=== PATIENT | female | born 1990 | race Caucasian/White ===

== ENCOUNTER 2017-07-29 17:10 | Emergency (ER) | payer BC ==
[~2017-07-29] VITALS: Ht 165.1 cm; Wt 86.2 kg
[~2017-07-29 17:10] MED LIST: ALBU90OI INH; AMOX500 PO; ATEN25 PO; CIPR500 PO; CODACE30 PO; CODBUTACEC; CODBUTACEC PO; FOLI400 PO; HYDACE10B PO; HYDACE5 PO; HYDR1TAB94 PO; IBUP400 PO; IBUP600 PO; Inderal40 MG PO; LORTAB 10 MG-3473 ML PO; NAPR500 PO; NITR100CA PO; ONDA4ODT MM; ORTHOCYCLINE; OXYACE5T PO; OXYASA5T PO; PENVK500 PO; PHENA200 PO; PROC10 PO; PROM25 PO; Percocet 10-321 EACH PO; Percocet 5-3251 EACH PO; QUDEXY XR150 MG PO; SULTRIDS PO; TAMS.4ER PO; TOPI50 PO; VENL150ER PO; VENL75ER PO; ZOLP10 PO
== END 2017-07-29 23:29 | disposition home or self-care (01) ==
LOC: ER 17:10
DX: Z30.432 Encounter for removal of intrauterine contraceptive device (principal); Z88.8 Allergy status to other drugs, medicaments and biological substances; Z87.891 Personal history of nicotine dependence
CPT/HCPCS: 74018; 76830; 76856; 99284

== ENCOUNTER 2018-01-09 14:33 | Emergency (ER) | payer OTHER ==
[~2018-01-09] VITALS: Ht 165.1 cm; Wt 90.7 kg
== END 2018-01-09 16:42 | disposition home or self-care (01) ==
LOC: ER 14:33
DX: G43.909 Migraine, unspecified, not intractable, without status migrainosus (principal); J45.909 Unspecified asthma, uncomplicated; F32.9 Major depressive disorder, single episode, unspecified; Z87.891 Personal history of nicotine dependence
CPT/HCPCS: 96374; 96375; 99283-25; J1100; J1200; J1885; J2765; J7030

== ENCOUNTER 2018-08-06 13:04 | Emergency (ER) | payer SELFPAY ==
[~2018-08-06] VITALS: Ht 167.6 cm; Wt 102.5 kg
[2018-08-06] MEDS ORDERED: METPRE4DP PO (13:29)
[2018-08-06] MEDS ORDERED: Naprosyn500 MG PO (13:29)
[2018-08-06] MEDS ORDERED: HYDR1TAB94 PO (13:29)
== END 2018-08-06 13:38 | disposition home or self-care (01) ==
LOC: ER 13:04
DX: M54.42 Lumbago with sciatica, left side (principal); F32.9 Major depressive disorder, single episode, unspecified; Z87.891 Personal history of nicotine dependence
CPT/HCPCS: 99283

== ENCOUNTER 2018-08-08 20:34 | Emergency (ER) | payer MEDICAID ==
[~2018-08-08] VITALS: Ht 167.6 cm; Wt 99.8 kg
[~2018-08-08 20:34] MED LIST changes: +METPRE4DP PO; +Naprosyn500 MG PO
[2018-08-08 21:30] LABS: BASOPHILS ABSOLUTE AUTO 0.04 K/mm3 (0.00-0.23); BASOPHILS PERCENT AUTO 0 % (0-2); EOSINOPHILS ABSOLUTE AUTO 0.02 K/mm3 (0.00-0.68); EOSINOPHILS PERCENT AUTO 0 % (0-6); Hematocrit 40.9 % (33.0-51.0); Hemoglobin 13.5 g/dL (11.5-16.0); IMMATURE GRAN ABSOLUTE AUTO 0.25 K/mm3 (0.00-0.10); IMMATURE GRAN PERCENT AUTO 1 % (0-1); LYMPHOCYTES ABSOLUTE AUTO 2.48 K/mm3 (0.84-5.20); LYMPHOCYTES PERCENT AUTO 12 % (21-46); MONOCYTES ABSOLUTE AUTO 0.77 K/mm3 (0.16-1.47); MONOCYTES PERCENT AUTO 4 % (4-13); Mean Corpuscular HGB 30.8 pg (26.0-34.0); Mean Corpuscular Volume 93 fL (80-100); Mean Platelet Volume 11.9 fL (9.1-12.4); NEUTROPHILS ABSOLUTE AUTO 16.47 K/mm3 (1.96-9.15); NEUTROPHILS PERCENT AUTO 82 % (41-73); Platelet Count 319 K/mm3 (150-400); RDW Coefficient Variation 11.9 % (11.7-14.2); RDW Standard Deviation 41.1 fL (35.1-46.3); Red Blood Cell Count 4.38 M/mm3 (3.80-5.20); White Blood Cell Count 20.03 K/mm3 (4.00-11.30)
[2018-08-08 21:48] LABS: Alanine Aminotransfer (ALT/SGP 25 U/L (12-78); Albumin, Blood 4.1 g/dL (3.4-5.0); Alk Phos 35 U/L (50-136); Anion Gap 9 mmol/L (6-16); Aspartate Aminotrans (AST/SGOT 13 U/L (12-37); Bilirubin, Total 0.2 mg/dL (0.1-1.0); Blood Urea Nitrogen 12 mg/dL (8-24); Bun/Creatinine Ratio 21.5 (12.0-20.0); CO2, Blood 25 mmol/L (21-32); Calcium, Blood 8.9 mg/dL (8.5-10.1); Chloride, Blood 106 mmol/L (98-108); Creatinine, Blood 0.56 mg/dL (0.40-1.00); Globulin, Blood 4.2 g/dL (2.2-4.0); Glomerular Filtration Rate >60 (60-); Glucose, Blood 140 mg/dL (70-99); Potassium, Blood 3.5 mmol/L (3.5-5.5); Sodium, Blood 140 mmol/L (136-145); Total Protein, Blood 8.3 g/dL (6.4-8.2)
[2018-08-08 22:04] LABS: Source, Urine Clean Catch
[2018-08-08 22:07] LABS: Bilirubin, Urine Neg (Neg); Blood, Urine 1+ (Neg); Glucose Qualitative, Urine Neg (Neg); Ketones, Urine Neg (Neg); Leukocyte Esterase, Urine Neg (Neg); Nitrite, Urine Neg (Neg); Protein, Urine Neg (Neg); Specific Gravity, Urine 1.015 (1.003-1.022); Urobilinogen, Urine NORM (Normal); pH, Urine 6.5 (5.0-8.0)
[2018-08-08 22:12] LABS: Appearance, Urine Clear (Clear); Color, Urine Yellow (P-Yellow)
[2018-08-08 22:13] LABS: Bacteria Mod /hpf; Red Blood Cells, Urine 0-2 /hpf (0-2); Squamous Epithelial Cells Not Seen /hpf (Few); White Blood Cells, Urine 0-2 /hpf (0-5)
[2018-08-09] MEDS ORDERED: Cipro250 MG PO (00:38)
== END 2018-08-09 01:22 | disposition home or self-care (01) ==
LOC: ER 20:34
PROVIDERS: Emergency Medicine
DX: N12 Tubulo-interstitial nephritis, not specified as acute or chronic (principal); J45.909 Unspecified asthma, uncomplicated; F32.9 Major depressive disorder, single episode, unspecified; Z87.891 Personal history of nicotine dependence
CPT/HCPCS: 36415; 80053; 81001; 85025; 87086; 96374; 96375; 99283-25; J0780; J1200; J1885; J2060

== ENCOUNTER 2018-09-27 20:31 | Emergency (ER) | payer SELFPAY ==
[~2018-09-27] VITALS: Ht 167.6 cm; Wt 104.3 kg
[~2018-09-27 20:31] MED LIST changes: +BENZ100A PO; +Cipro250 MG PO
== END 2018-09-27 22:05 | disposition home or self-care (01) ==
LOC: ER 20:31
DX: S01.551A Open bite of lip, initial encounter (principal); W54.0XXA Bitten by dog, initial encounter; Z88.8 Allergy status to other drugs, medicaments and biological substances; F17.200 Nicotine dependence, unspecified, uncomplicated
CPT/HCPCS: 99283

== ENCOUNTER 2019-04-24 17:50 | Emergency (ER) | payer OTHER ==
[~2019-04-24] VITALS: Ht 167.6 cm; Wt 99.8 kg
[2019-04-24 18:51] LABS: BASOPHILS ABSOLUTE AUTO 0.05 K/mm3 (0.00-0.23); BASOPHILS PERCENT AUTO 0 % (0-2); EOSINOPHILS ABSOLUTE AUTO 0.19 K/mm3 (0.00-0.68); EOSINOPHILS PERCENT AUTO 2 % (0-6); Hemoglobin 13.7 g/dL (11.5-16.0); IMMATURE GRAN ABSOLUTE AUTO 0.03 K/mm3 (0.00-0.10); IMMATURE GRAN PERCENT AUTO 0 % (0-1); LYMPHOCYTES ABSOLUTE AUTO 4.08 K/mm3 (0.84-5.20); LYMPHOCYTES PERCENT AUTO 32 % (21-46); MONOCYTES ABSOLUTE AUTO 0.63 K/mm3 (0.16-1.47); MONOCYTES PERCENT AUTO 5 % (4-13); Mean Corpuscular HGB 30.4 pg (26.0-34.0); Mean Corpuscular HGB Conc 33.4 g/dL (31.5-36.5); Mean Corpuscular Volume 91 fL (80-100); Mean Platelet Volume 11.5 fL (9.1-12.4); NEUTROPHILS ABSOLUTE AUTO 7.92 K/mm3 (1.96-9.15); NEUTROPHILS PERCENT AUTO 61 % (41-73); Platelet Count 304 K/mm3 (150-400); RDW Coefficient Variation 12.2 % (11.7-14.2); RDW Standard Deviation 40.5 fL (35.1-46.3)
[2019-04-24 19:02] LABS: Alanine Aminotransfer (ALT/SGP 27 U/L (12-78); Albumin, Blood 3.9 g/dL (3.4-5.0); Alk Phos 37 U/L (50-136); Anion Gap 7 mmol/L (6-16); Aspartate Aminotrans (AST/SGOT 15 U/L (12-37); Bilirubin, Total 0.3 mg/dL (0.1-1.0); Blood Urea Nitrogen 11 mg/dL (8-24); CO2, Blood 25 mmol/L (21-32); Calcium, Blood 8.9 mg/dL (8.5-10.1); Chloride, Blood 106 mmol/L (98-108); Creatinine, Blood 0.61 mg/dL (0.40-1.00); Globulin, Blood 4.1 g/dL (2.2-4.0); Glomerular Filtration Rate >60 (60-); Glucose, Blood 115 mg/dL (70-99); Potassium, Blood 3.7 mmol/L (3.5-5.5); Sodium, Blood 138 mmol/L (136-145)
[2019-04-24 19:36] LABS: Source, Urine Clean Catch
[2019-04-24 19:42] LABS: Bilirubin, Urine Neg (Neg); Blood, Urine Neg (Neg); Glucose Qualitative, Urine Neg (Neg); Ketones, Urine Neg (Neg); Leukocyte Esterase, Urine Neg (Neg); Nitrite, Urine Neg (Neg); Protein, Urine Neg (Neg); Specific Gravity, Urine 1.025 (1.003-1.022); Urobilinogen, Urine 1+ (Normal)
[2019-04-24 19:50] LABS: Appearance, Urine Clear (Clear); Color, Urine Yellow (P-Yellow)
== END 2019-04-24 21:00 | disposition home or self-care (01) ==
LOC: ER 17:50
PROVIDERS: Physician Assistant
DX: S39.012A Strain of muscle, fascia and tendon of lower back, initial encounter (principal); S39.011A Strain of muscle, fascia and tendon of abdomen, initial encounter; J45.909 Unspecified asthma, uncomplicated; F32.9 Major depressive disorder, single episode, unspecified; Z88.8 Allergy status to other drugs, medicaments and biological substances; Z87.442 Personal history of urinary calculi; X58.XXXA Exposure to other specified factors, initial encounter
CPT/HCPCS: 36415; 74176; 80053; 81003; 81025; 85025; 96361; 96374; 96375; 99284-25; A9270; J1170; J1885; J2405; J7030

== ENCOUNTER 2019-08-07 02:05 | Emergency (ER) | payer OTHER ==
[~2019-08-07] VITALS: Ht 167.6 cm; Wt 104.3 kg
[~2019-08-07 02:05] MED LIST changes: +Acetaminophen-1 EAC1 PO; +BUTALB-ACETAMI1 EACH PO; +Esgic Tablet1 EACH PO; +IBUP800 PO; +TOPI100 PO
[2019-08-07 02:42] LABS: BASOPHILS ABSOLUTE AUTO 0.06 K/mm3 (0.00-0.23); BASOPHILS PERCENT AUTO 0 % (0-2); EOSINOPHILS ABSOLUTE AUTO 0.21 K/mm3 (0.00-0.68); EOSINOPHILS PERCENT AUTO 1 % (0-6); Hemoglobin 14.4 g/dL (11.5-16.0); IMMATURE GRAN ABSOLUTE AUTO 0.03 K/mm3 (0.00-0.10); IMMATURE GRAN PERCENT AUTO 0 % (0-1); LYMPHOCYTES ABSOLUTE AUTO 4.83 K/mm3 (0.84-5.20); LYMPHOCYTES PERCENT AUTO 29 % (21-46); MONOCYTES ABSOLUTE AUTO 1.09 K/mm3 (0.16-1.47); MONOCYTES PERCENT AUTO 7 % (4-13); Mean Corpuscular HGB 30.7 pg (26.0-34.0); Mean Corpuscular HGB Conc 33.5 g/dL (31.5-36.5); Mean Corpuscular Volume 92 fL (80-100); Mean Platelet Volume 12.2 fL (9.1-12.4); NEUTROPHILS ABSOLUTE AUTO 10.39 K/mm3 (1.96-9.15); NEUTROPHILS PERCENT AUTO 62 % (41-73); Platelet Count 288 K/mm3 (150-400); RDW Coefficient Variation 12.4 % (11.7-14.2); Red Blood Cell Count 4.69 M/mm3 (3.80-5.20); White Blood Cell Count 16.61 K/mm3 (4.00-11.30)
[2019-08-07 02:53] LABS: Source, Urine Clean Catch
[2019-08-07 03:01] LABS: Alanine Aminotransfer (ALT/SGP 23 U/L (12-78); Alk Phos 41 U/L (50-136); Anion Gap 7 mmol/L (6-16); Aspartate Aminotrans (AST/SGOT 12 U/L (12-37); Bilirubin, Total 0.3 mg/dL (0.1-1.0); Blood Urea Nitrogen 11 mg/dL (8-24); Bun/Creatinine Ratio 11.3 (12.0-20.0); CO2, Blood 24 mmol/L (21-32); Calcium, Blood 9.1 mg/dL (8.5-10.1); Chloride, Blood 110 mmol/L (98-108); Creatinine, Blood 0.97 mg/dL (0.40-1.00); Glomerular Filtration Rate >60 (60-); Glucose, Blood 114 mg/dL (70-99); Potassium, Blood 3.8 mmol/L (3.5-5.5); Sodium, Blood 141 mmol/L (136-145)
[2019-08-07 03:08] LABS: Amorphous Light (0-Heavy); Appearance, Urine Hazy (Clear); Bacteria Mod /hpf; Bilirubin, Urine Neg (Neg); Blood, Urine 2+ (Neg); Color, Urine Yellow (P-Yellow); Glucose Qualitative, Urine Neg (Neg); Ketones, Urine Neg (Neg); Leukocyte Esterase, Urine Neg (Neg); Mucus Light (0-Heavy); Nitrite, Urine Neg (Neg); Protein, Urine 1+ (Neg); Squamous Epithelial Cells Few /hpf (Few); Urobilinogen, Urine NORM (Normal); White Blood Cells, Urine 0-2 /hpf (0-5)
[2019-08-07] MEDS ORDERED: Bactrim Ds Tab1 EACH PO (06:24)
[2019-08-07] MEDS ORDERED: Percocet 5-3251 EACH PO (06:24)
[2019-08-07] MEDS ORDERED: Flomax0.4 MG PO (06:24)
== END 2019-08-07 06:51 | disposition home or self-care (01) ==
LOC: ER 02:05
PROVIDERS: Emergency Medicine
DX: N13.2 Hydronephrosis with renal and ureteral calculous obstruction (principal); Z88.8 Allergy status to other drugs, medicaments and biological substances; Z79.899 Other long term (current) drug therapy; F32.9 Major depressive disorder, single episode, unspecified; J45.909 Unspecified asthma, uncomplicated
CPT/HCPCS: 36415; 74176; 80053; 81001; 81025; 83690; 85025; 96365; 96375; 96376; 99284-25; J0696; J1170; J1885

== ENCOUNTER 2019-10-07 11:01 | Emergency (ER) | payer OTHER ==
[~2019-10-07] VITALS: Ht 167.6 cm; Wt 108.0 kg
[~2019-10-07 11:01] MED LIST changes: +Bactrim Ds Tab1 EACH PO; +Flomax0.4 MG PO
== END 2019-10-07 12:37 | disposition home or self-care (01) ==
LOC: ER 11:01
DX: O00.90 Unspecified ectopic pregnancy without intrauterine pregnancy (principal); Z88.8 Allergy status to other drugs, medicaments and biological substances; Z79.899 Other long term (current) drug therapy; Z87.891 Personal history of nicotine dependence
CPT/HCPCS: 96372; 99283-25; J8610; J9260

== ENCOUNTER 2020-04-07 07:26 | Day surgery (SDC) | payer OTHER ==
[~2020-04-07] VITALS: Ht 167.6 cm; Wt 109.7 kg
[~2020-04-07 07:26] MED LIST changes: +ACET325 PO; +ACETAMINOPHEN500 MG PO; +BUTALB-ACETAMI1 EAC7 PO; +Promethazine HC25 M1 PO
== END 2020-04-07 10:53 | disposition home or self-care (01) ==
LOC: ORSCSDS 07:26
PROVIDERS: Obstetrics & Gynecology
PROC: 0D5W4ZZ Destruction of Peritoneum, Percutaneous Endoscopic Approach (ICD-10-PCS; principal; 2020-04-07 08:45)
PROC: 0DNW4ZZ Release Peritoneum, Percutaneous Endoscopic Approach (ICD-10-PCS; principal; 2020-04-07 08:45)
DX: N92.0 Excessive and frequent menstruation with regular cycle (principal); N80.3 Endometriosis of pelvic peritoneum; R10.2 Pelvic and perineal pain; N94.6 Dysmenorrhea, unspecified; N94.10 Unspecified dyspareunia; F41.8 Other specified anxiety disorders; E66.01 Morbid (severe) obesity due to excess calories; Z68.39 Body mass index [BMI] 39.0-39.9, adult; Z87.891 Personal history of nicotine dependence
CPT/HCPCS: A9270; J0171; J0690; J1100; J2405; J2704; J2765; J3010; J7120

== ENCOUNTER 2021-03-13 06:32 | Inpatient (IN) | payer OTHER ==
[~2021-03-13] VITALS: Ht 167.6 cm; Wt 120.5 kg
[2021-03-13 07:33] LABS: BASOPHILS ABSOLUTE AUTO 0.04 K/mm3 (0.00-0.23); BASOPHILS PERCENT AUTO 0 % (0-2); EOSINOPHILS ABSOLUTE AUTO 0.16 K/mm3 (0.00-0.68); EOSINOPHILS PERCENT AUTO 2 % (0-6); Hematocrit 40.4 % (33.0-51.0); Hemoglobin 13.5 g/dL (11.5-16.0); IMMATURE GRAN ABSOLUTE AUTO 0.06 K/mm3 (0.00-0.10); IMMATURE GRAN PERCENT AUTO 1 % (0-1); LYMPHOCYTES ABSOLUTE AUTO 3.14 K/mm3 (0.84-5.20); LYMPHOCYTES PERCENT AUTO 30 % (21-46); MONOCYTES ABSOLUTE AUTO 0.67 K/mm3 (0.16-1.47); MONOCYTES PERCENT AUTO 6 % (4-13); Mean Corpuscular HGB 28.7 pg (26.0-34.0); Mean Corpuscular HGB Conc 33.4 g/dL (31.5-36.5); Mean Corpuscular Volume 86 fL (80-100); NEUTROPHILS ABSOLUTE AUTO 6.41 K/mm3 (1.96-9.15); NEUTROPHILS PERCENT AUTO 61 % (41-73); Platelet Count 176 K/mm3 (150-400); RDW Coefficient Variation 13.6 % (11.7-14.2); RDW Standard Deviation 41.9 fL (35.1-46.3); Red Blood Cell Count 4.71 M/mm3 (3.80-5.20); White Blood Cell Count 10.48 K/mm3 (4.00-11.30)
[2021-03-13 07:36] LABS: Mean Platelet Volume 13.9 fL (9.1-12.4)
[2021-03-13] MEDS ORDERED: PRENATAL TABLE1 EAC2 PO (07:53)
--- NOTE | 2021-03-13 10:12 | NUR ---
03/13/21 Moraima2 Rosemarie Aranda CORD SEGMENT GIVEN TO RT. CORD BLOOD GIVEN TO BABY NURSE.
[2021-03-13 10:18] LABS: PCO2 Cord - Arterial 82.7 mmHg (40-50); PO2 Cord - Arterial < 13 mmHg (16-20); pH Cord - Arterial 7.02 (7.28-7.35)
[2021-03-13 10:19] LABS: PCO2 Cord - Venous 74.3 mmHg (40-50); pH Umbilical Cord - Venous 7.09 (7.26-7.35)
[2021-03-13 10:20] LABS: PO2 Cord - Venous < 13 mmHg (28-32)
[2021-03-14 05:46] LABS: BASOPHILS ABSOLUTE AUTO 0.04 K/mm3 (0.00-0.23); BASOPHILS PERCENT AUTO 0 % (0-2); EOSINOPHILS ABSOLUTE AUTO 0.11 K/mm3 (0.00-0.68); EOSINOPHILS PERCENT AUTO 1 % (0-6); Hematocrit 34.4 % (33.0-51.0); Hemoglobin 11.6 g/dL (11.5-16.0); IMMATURE GRAN ABSOLUTE AUTO 0.06 K/mm3 (0.00-0.10); IMMATURE GRAN PERCENT AUTO 1 % (0-1); LYMPHOCYTES ABSOLUTE AUTO 3.99 K/mm3 (0.84-5.20); LYMPHOCYTES PERCENT AUTO 34 % (21-46); MONOCYTES ABSOLUTE AUTO 0.72 K/mm3 (0.16-1.47); MONOCYTES PERCENT AUTO 6 % (4-13); Mean Corpuscular HGB 28.9 pg (26.0-34.0); Mean Corpuscular HGB Conc 33.7 g/dL (31.5-36.5); Mean Corpuscular Volume 86 fL (80-100); NEUTROPHILS ABSOLUTE AUTO 6.95 K/mm3 (1.96-9.15); NEUTROPHILS PERCENT AUTO 59 % (41-73); Platelet Count 158 K/mm3 (150-400); RDW Coefficient Variation 13.6 % (11.7-14.2); Red Blood Cell Count 4.01 M/mm3 (3.80-5.20); White Blood Cell Count 11.87 K/mm3 (4.00-11.30)
[2021-03-14 05:50] LABS: Mean Platelet Volume 13.2 fL (9.1-12.4)
[2021-03-15] MEDS ORDERED: Percocet 5-3251 EACH PO (09:35)
[2021-03-15] MEDS ORDERED: IBU800 M1 PO (09:35)
[2021-03-15] MEDS ORDERED: DOCU100 PO (09:36)
--- NOTE | 2021-03-15 10:42 | NUR ---
Printed d/c instructions and teaching reveiewed with pt. Denies additional questions/concerns at this time. Verbalizes understanding of follow up appointments. No acute changes t/o shift. ID bands matched w/nb. Pt d/c'd home ambulatory to care of [facility].
== END 2021-03-15 10:30 | disposition home or self-care (01) | DRG 788 ==
LOC: BC 06:32
PROVIDERS: ADMIT Obstetrics & Gynecology
PROC: 10D00Z1 Extraction of Products of Conception, Low, Open Approach (ICD-10-PCS; principal; 2021-03-13 08:30)
DX: O32.1XX0 Maternal care for breech presentation, not applicable or unspecified (principal); Z37.0 Single live birth; Z3A.39 39 weeks gestation of pregnancy; Z67.40 Type O blood, Rh positive; O13.4 Gestational [pregnancy-induced] hypertension without significant proteinuria, complicating childbirth; O34.83 Maternal care for other abnormalities of pelvic organs, third trimester; N94.89 Other specified conditions associated with female genital organs and menstrual cycle
CPT/HCPCS: 36415; 82803; 85025; 86850; 86900; 86901; 88304; A9270; J0690; J1885; J2370; J2405; J2590; J2765; J3010; J7120

== ENCOUNTER 2021-10-18 09:30 | Day surgery (SDC) | payer OTHER ==
[~2021-10-18] VITALS: Ht 167.6 cm; Wt 115.7 kg
[~2021-10-18 09:30] MED LIST changes: +CYCL10 PO; +DOCU100 PO; +IBU800 M1 PO; +LIDO700A20 TOP; +PRENATAL TABLE1 EAC2 PO
[2021-10-18] MEDS ORDERED: AMIT25 PO (09:53)
--- NOTE | 2021-10-18 16:33 | NUR ---
ASSUMED CARE: PT ARRIVED TO ROOM VIA GURNEY BY INFORMATION SECURITY SPECIALIST, RECIVED BY STUDENT NURSE AND RN MOY Phelan. PT A&OX4 UPON ARRIVAL AND STATING 6/10 PAIN IN LRQ, PLAN TO MEDICATE PER JUL. PT SATTING >98% ON RA, NSR IN 70'S. VARMA PATENT AND DRAINING TO GRAVITY. LR RUNNING VIA GRAVITY WIDE OPEN IN 18G RAC, 22G IN LH PRESENT. LUNG SOUNDS CLEAR, BOWEL SOUNDS HYPOACTIVE, 4 SMALL INCISIONS ON ABD PRESENT AND CLOSED W/ GLUE. PT ORIENTED TO ROOM, CALL LIGHT WITHIN REACH.
--- NOTE | 2021-10-18 16:57 | NUR ---
EDUCATED PT ON INCENTIVE SPIROMETER, PT REPEATED BACK INFO AND EXPRESSED UNDERSTANDING TO TEACHING. CALL LIGHT WITHIN REACH, NO ACUTE DISTRESS/NEEDS AT THIS TIME.
--- NOTE | 2021-10-18 17:10 | NUR ---
REVIEWED HUMAN RESOURCES COMMUNICATIONS MANAGER'S ASSUMED CARE NOTE AND AGREE
--- NOTE | 2021-10-18 18:13 | NUR ---
SHIFT SUMMARY: PT ARRIVED FROM PACU A&OX4, HAS REAMINED SO DURING TIME IN ROOM. VSS, LUNGS SOUNDS CLEAR THROUGHOUT, AND INCISIONS TO ABD C/D/I W/ SKIN GLUE. VARMA CATHETER WAS REMOVED, PT TOLERATED WELL. ABD BINDER IN PLACE. LR RUNNING AT 75ML/HR IN RAC. PT WAS ABLE TO AMBULATE TO BATHROM W/ SBA. PT CALLS APPROPRIATELY, CALL LIGHT WITHIN REACH. NO ACUTE NEEDS/DISTRESS AT THIS TIME.
--- NOTE | 2021-10-19 04:42 | NUR ---
GEM CUTTER SUMMARY PT A&O X4 AND COOPERATIVE. VSS. FOUR ABD INCISIONS ARE C/D/I AND OPEN TO AIR. PT AMBULATED IN THE [place]. SHE IS VOIDING AND HAS BEEN AMBULATING TO RESTROOM INDEPENDENTLY. SHE COMPLAINED OF 8/10 PAIN MIDWAY THROUGH SHIFT AND WAS MEDICATED WITH PERCOCET AND MORPHINE, PER EMAR. NO OTHER ACUTE CHANGES THIS SHIFT.
[2021-10-19 05:15] LABS: BASOPHILS ABSOLUTE AUTO 0.02 K/mm3 (0.00-0.23); BASOPHILS PERCENT AUTO 0 % (0-2); EOSINOPHILS PERCENT AUTO 0 % (0-6); Hematocrit 37.4 % (33.0-51.0); Hemoglobin 12.2 g/dL (11.5-16.0); IMMATURE GRAN ABSOLUTE AUTO 0.05 K/mm3 (0.00-0.10); IMMATURE GRAN PERCENT AUTO 0 % (0-1); LYMPHOCYTES PERCENT AUTO 9 % (21-46); MONOCYTES ABSOLUTE AUTO 0.68 K/mm3 (0.16-1.47); MONOCYTES PERCENT AUTO 5 % (4-13); Mean Corpuscular HGB 28.5 pg (26.0-34.0); Mean Corpuscular HGB Conc 32.6 g/dL (31.5-36.5); Mean Corpuscular Volume 87 fL (80-100); Mean Platelet Volume 12.1 fL (9.1-12.4); NEUTROPHILS ABSOLUTE AUTO 12.61 K/mm3 (1.96-9.15); NEUTROPHILS PERCENT AUTO 86 % (41-73); Platelet Count 292 K/mm3 (150-400); RDW Coefficient Variation 13.3 % (11.7-14.2); Red Blood Cell Count 4.28 M/mm3 (3.80-5.20); White Blood Cell Count 14.66 K/mm3 (4.00-11.30)
--- NOTE | 2021-10-19 08:05 | NUR ---
0740 PT REPORTS ITCHING WHICH SHE STATES IS NORMAL FOR HER WITH PAIN MEDS. REDDENED AREA 3 BY 3 INCH TO CHEST WHICH PT STATES IS WHERE SHE SCRATCHED. NO VISIBLE LESIONS, BENADRYL GIVEN
[2021-10-19] MEDS ORDERED: IBUP400 PO (13:54)
[2021-10-19] MEDS ORDERED: PROM25 PO (13:55)
[2021-10-19] MEDS ORDERED: Percocet 5-3251 EACH PO (13:55)
[2021-10-19] MEDS ORDERED: SIME80CH PO (13:56)
--- NOTE | 2021-10-19 14:13 | NUR ---
DISCHARGE INSTRUCTIONS REVIEWED WITH PATIENT AND HER . PT STATES PAIN IS WELL CONTROLLED, BROOKE PO FOOD AND FLUIDS WITHOUT NAUSEA. VOIDING CLEAR YELLOW URINE. DCANT BLOODY VAGINAL DRAINAGE. PT AMBULATING INDEPENDENTLY WITH ABD BINDER IN PLACE. PT IN AGREEMENT WITH PLAN TO DISCHARGE. DISCHARGED HOME WITH HER SPOUSE
== END 2021-10-19 14:15 | disposition home or self-care (01) ==
LOC: ORSCMMR 09:30 → ORD 11:00 → ORSCMMR 11:00 → SURS 15:04 → ORSCMMR 10-19 14:15
PROVIDERS: Obstetrics & Gynecology
PROC: 8E0W4CZ Robotic Assisted Procedure of Trunk Region, Percutaneous Endoscopic Approach (ICD-10-PCS; principal; 2021-10-18 11:00)
PROC: 0UT74ZZ Resection of Bilateral Fallopian Tubes, Percutaneous Endoscopic Approach (ICD-10-PCS; principal; 2021-10-18 11:00)
PROC: 0UT94ZZ Resection of Uterus, Percutaneous Endoscopic Approach (ICD-10-PCS; principal; 2021-10-18 11:00)
PROC: 0U5F4ZZ Destruction of Cul-de-sac, Percutaneous Endoscopic Approach (ICD-10-PCS; principal; 2021-10-18 11:00)
DX: N92.1 Excessive and frequent menstruation with irregular cycle (principal); N80.0 Endometriosis of uterus; N80.3 Endometriosis of pelvic peritoneum; N94.6 Dysmenorrhea, unspecified; N94.10 Unspecified dyspareunia; R10.2 Pelvic and perineal pain; Q50.5 Embryonic cyst of broad ligament; E66.01 Morbid (severe) obesity due to excess calories; Z68.41 Body mass index [BMI] 40.0-44.9, adult; F41.8 Other specified anxiety disorders; K21.9 Gastro-esophageal reflux disease without esophagitis; Z87.891 Personal history of nicotine dependence; Z79.899 Other long term (current) drug therapy
CPT/HCPCS: 58571; 58662; S2900; 36415; 85025; 88307; A9270; J0690; J1100; J2250; J2270; J2405; J2704; J3010; J7120

== ENCOUNTER → 2022-11-02 | Outpatient (CLI) | payer BC ==
[~2022-11-02] MED LIST changes: +AMIT25 PO; +SIME80CH PO
[2022-11-02 11:35] LABS: BASOPHILS ABSOLUTE AUTO 0.07 K/mm3 (0.00-0.23); BASOPHILS PERCENT AUTO 1 % (0-2); EOSINOPHILS ABSOLUTE AUTO 0.22 K/mm3 (0.00-0.68); EOSINOPHILS PERCENT AUTO 2 % (0-6); Hematocrit 39.8 % (33.0-51.0); Hemoglobin 13.8 g/dL (11.5-16.0); IMMATURE GRAN ABSOLUTE AUTO 0.01 K/mm3 (0.00-0.10); IMMATURE GRAN PERCENT AUTO 0 % (0-1); LYMPHOCYTES ABSOLUTE AUTO 2.48 K/mm3 (0.84-5.20); LYMPHOCYTES PERCENT AUTO 27 % (21-46); MONOCYTES ABSOLUTE AUTO 0.53 K/mm3 (0.16-1.47); MONOCYTES PERCENT AUTO 6 % (4-13); Mean Corpuscular HGB 30.6 pg (26.0-34.0); Mean Corpuscular HGB Conc 34.7 g/dL (31.5-36.5); Mean Corpuscular Volume 88 fL (80-100); Mean Platelet Volume 11.7 fL (9.1-12.4); NEUTROPHILS ABSOLUTE AUTO 5.74 K/mm3 (1.96-9.15); NEUTROPHILS PERCENT AUTO 63 % (41-73); Platelet Count 265 K/mm3 (150-400); RDW Coefficient Variation 13.2 % (11.7-14.2); RDW Standard Deviation 42.5 fL (35.1-46.3); Red Blood Cell Count 4.51 M/mm3 (3.80-5.20); White Blood Cell Count 9.05 K/mm3 (4.00-11.30)
[2022-11-02 11:47] LABS: Bilirubin, Total 0.4 mg/dL (0.1-1.0); Bun/Creatinine Ratio 13.5 (12.0-20.0); Calcium, Blood 9.3 mg/dL (8.5-10.1); Creatinine, Blood 0.74 mg/dL (0.40-1.00); Globulin, Blood 3.9 g/dL (2.2-4.0); Potassium, Blood 3.9 mmol/L (3.5-5.5); Total Protein, Blood 7.9 g/dL (6.4-8.2)
== END | disposition home or self-care (01) ==
LOC: LAB SHORT 11:31 → LAB 11:31
PROVIDERS: Emergency Medicine
DX: R00.2 Palpitations (principal)
CPT/HCPCS: 80053; 84484; 85025; 85379

== ENCOUNTER → 2023-06-10 | Outpatient (CLI) | payer BC ==
[2023-06-10 10:38] LABS: BASOPHILS ABSOLUTE AUTO 0.03 K/mm3 (0.00-0.23); BASOPHILS PERCENT AUTO 0 % (0-2); EOSINOPHILS ABSOLUTE AUTO 0.18 K/mm3 (0.00-0.68); EOSINOPHILS PERCENT AUTO 2 % (0-6); Hematocrit 41.4 % (33.0-51.0); Hemoglobin 13.9 g/dL (11.5-16.0); IMMATURE GRAN ABSOLUTE AUTO 0.01 K/mm3 (0.00-0.10); IMMATURE GRAN PERCENT AUTO 0 % (0-1); LYMPHOCYTES PERCENT AUTO 38 % (21-46); MONOCYTES ABSOLUTE AUTO 0.49 K/mm3 (0.16-1.47); MONOCYTES PERCENT AUTO 6 % (4-13); Mean Corpuscular HGB 30.1 pg (26.0-34.0); Mean Corpuscular HGB Conc 33.6 g/dL (31.5-36.5); Mean Corpuscular Volume 90 fL (80-100); Mean Platelet Volume 11.2 fL (9.1-12.4); NEUTROPHILS ABSOLUTE AUTO 4.11 K/mm3 (1.96-9.15); NEUTROPHILS PERCENT AUTO 53 % (41-73); Platelet Count 279 K/mm3 (150-400); RDW Coefficient Variation 12.5 % (11.7-14.2); RDW Standard Deviation 40.9 fL (35.1-46.3); Red Blood Cell Count 4.62 M/mm3 (3.80-5.20); White Blood Cell Count 7.72 K/mm3 (4.00-11.30)
[2023-06-10 10:58] LABS: Albumin, Blood 4.2 g/dL (3.4-5.0); Albumin/Globulin Ratio 1.1 (0.8-1.8); Bilirubin, Total 0.5 mg/dL (0.1-1.0); Bun/Creatinine Ratio 11.5 (12.0-20.0); Calcium, Blood 9.6 mg/dL (8.5-10.1); Creatinine, Blood 0.87 mg/dL (0.40-1.00); Globulin, Blood 3.9 g/dL (2.2-4.0); Potassium, Blood 3.8 mmol/L (3.5-5.5); Total Protein, Blood 8.1 g/dL (6.4-8.2)
== END ==
LOC: LAB SHORT 10:33 → LAB 10:33
PROVIDERS: Physician Assistant
DX: R10.32 Left lower quadrant pain (principal); R31.9 Hematuria, unspecified
CPT/HCPCS: 80053; 83690; 85025; 87086

== ENCOUNTER → 2024-04-14 | Outpatient (CLI) | payer BC ==
[2024-04-14 12:56] LABS: BASOPHILS ABSOLUTE AUTO 0.05 K/mm3 (0.00-0.23); BASOPHILS PERCENT AUTO 1 % (0-2); EOSINOPHILS PERCENT AUTO 1 % (0-6); Hematocrit 41.3 % (33.0-51.0); IMMATURE GRAN ABSOLUTE AUTO 0.04 K/mm3 (0.00-0.10); IMMATURE GRAN PERCENT AUTO 0 % (0-1); LYMPHOCYTES ABSOLUTE AUTO 3.26 K/mm3 (0.84-5.20); LYMPHOCYTES PERCENT AUTO 33 % (21-46); MONOCYTES ABSOLUTE AUTO 0.46 K/mm3 (0.16-1.47); MONOCYTES PERCENT AUTO 5 % (4-13); Mean Corpuscular HGB 30.6 pg (26.0-34.0); Mean Corpuscular HGB Conc 33.9 g/dL (31.5-36.5); Mean Corpuscular Volume 90 fL (80-100); Mean Platelet Volume 11.5 fL (9.1-12.4); NEUTROPHILS ABSOLUTE AUTO 6.04 K/mm3 (1.96-9.15); NEUTROPHILS PERCENT AUTO 61 % (41-73); Platelet Count 260 K/mm3 (150-400); RDW Coefficient Variation 11.9 % (11.7-14.2); RDW Standard Deviation 39.3 fL (35.1-46.3); Red Blood Cell Count 4.58 M/mm3 (3.80-5.20); White Blood Cell Count 9.95 K/mm3 (4.00-11.30)
[2024-04-14 12:59] LABS: Bun/Creatinine Ratio 17.8 (12.0-20.0); Calcium, Blood 8.8 mg/dL (8.5-10.1); Creatinine, Blood 0.9 mg/dL (0.40-1.00); Potassium, Blood 3.8 mmol/L (3.5-5.5)
== END ==
LOC: LAB 12:50 → LAB SHORT 12:50
PROVIDERS: Physician Assistant
DX: N39.0 Urinary tract infection, site not specified (principal); R10.9 Unspecified abdominal pain; R31.9 Hematuria, unspecified
CPT/HCPCS: 80048; 85025; 87086